=== PATIENT | female | born 2000 | race Caucasian/White ===

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

== ENCOUNTER 2020-06-11 23:39 | Outpatient (CLI) | payer OTHER | END 2020-06-11 23:42 | disposition home or self-care (01) | LOC: PPH VACUNA 23:39 | DX: Z23 Encounter for immunization (principal) ==

== ENCOUNTER 2020-07-02 08:00 | Outpatient (CLI) | payer OTHER | END 2020-07-02 08:30 | disposition home or self-care (01) | LOC: PPH VACUNA 08:00 | DX: Z23 Encounter for immunization (principal) ==

== ENCOUNTER 2023-08-26 13:30 | Emergency (ER) | payer OTHER ==
[~2023-08-26] VITALS: Ht 149.9 cm; Wt 45.8 kg
[2023-08-26] MEDS ORDERED: DOXYCYCLINE HYCLATE 100MG IV STA (15:02)
[2023-08-26] MEDS ORDERED: DOXYCYCLINE HYCLATE 100 MG TABLET PO STA (15:16)
[2023-08-26] MEDS ORDERED: ONDANSETRON HCL 2 MG/ML VIAL IV ONE (16:30)
== END 2023-08-26 17:12 | disposition home or self-care (01) ==
LOC: ER 13:31
DX: N76.0 Acute vaginitis (principal); Z87.09 Personal history of other diseases of the respiratory system

== ENCOUNTER 2024-01-12 08:22 | Emergency (ER) | payer OTHER ==
[~2024-01-12] VITALS: Ht 149.9 cm; Wt 54.4 kg
[2024-01-12] MEDS ORDERED: CEFTRIAXONE SODIUM 1,000 MG VIAL IM STA (09:21)
[2024-01-12] MEDS ORDERED: KETOROLAC TROMETHAMINE 30 MG VIAL IM STA (09:21)
[2024-01-12 11:06] LABS: HEMATOCRIT 41.5 % (36.0-45.00); HEMOGLOBIN 14.4 g/dL (12.0-15.00); MEAN CELL VOLUME 84.7 fL (80.00-100.00); MEAN CORPUSCULAR HEMOGLOBIN 29.3 pg (27.00-32.0); MEAN CORPUSCULAR HGB CONC 34.6 g/dl (32.0-36.0); PLATELET COUNT 319 K/uL (150-450); RED CELL DISTRIBUTION WIDTH 13.6 % (11.5-14.5)
[2024-01-12 11:32] LABS: PH,URINE 6.5 (5.0-8.0); URINE APPEARANCE Cloudy; URINE BILIRRUBIN Negative (NEGATIVE); URINE BLOOD Moderate; URINE COLOR Dark Yellow; URINE GLUCOSE Negative (NEGATIVE); URINE KETONE Trace (NEGATIVE); URINE LEUKOCYTE Moderate; URINE NITRATE Negative; URINE PROTEIN 30 (NEGATIVE)
[2024-01-12 11:35] LABS: URINE BACTERIA 7216.8 uL (0.0-1933); URINE EPITHELIAL CELLS 33.8 uL (0.0-38.8); URINE RBC 138.6 uL (0.0-20.8); URINE WBC 1076.5 uL (0.0-23.2)
[2024-01-12 11:51] LABS: URINE CAST 0.15 uL (0.0-1.40)
[2024-01-12] MEDS ORDERED: BACTRIM DS TAB1 EACH PO (12:09)
[2024-01-12] MEDS ORDERED: NABUMETONE500 MG PO (12:09)
== END 2024-01-12 12:55 | disposition home or self-care (01) ==
LOC: ER 08:24
PROVIDERS: General Practice
DX: N30.90 Cystitis, unspecified without hematuria (principal)

== ENCOUNTER 2024-11-14 16:38 | Emergency (ER) | payer OTHER ==
[~2024-11-14] VITALS: Ht 147.3 cm; Wt 54.4 kg
[~2024-11-14 16:38] MED LIST changes: +BACTRIM DS TAB1 EACH PO; +NABUMETONE500 MG PO
[2024-11-14] MEDS ORDERED: KETOROLAC TROMETHAMINE 30 MG VIAL IM STA (17:36)
[2024-11-14] MEDS ORDERED: DEXAMETHASONE SODIUM PHOSPHATE 4 MG/ML VIAL IM STA (17:37)
[2024-11-14] MEDS ORDERED: DEXAMETHASONE SODIUM PHOSPHATE 4 MG/ML VIAL ONE (17:44)
[2024-11-14] MEDS ORDERED: KETOROLAC TROMETHAMINE 30 MG VIAL ONE (17:44)
== END 2024-11-14 21:17 | disposition home or self-care (01) ==
LOC: ER 16:38
DX: M79.601 Pain in right arm (principal); M79.604 Pain in right leg; M62.838 Other muscle spasm; W19.XXXA Unspecified fall, initial encounter